=== PATIENT | male | born 1990 | race African-American/Black ===

== ENCOUNTER 2017-08-02 11:55 | Emergency (ER) | payer BC, OTHER ==
[2017-08-02 12:02] VITALS: BP 128/84; PULSE 77; TEMP 99.1; BMI 33.0
[2017-08-02] MEDS ORDERED: IBUPROFEN 600 MG TABLET (FP) PO ONE ×2 (12:13→12:16)
[2017-08-02] MEDS ORDERED: DIPHTH,PERTUSS(ACELL),TET 0.5 ML DISP.SYRIN IM ONE (12:18)
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
--- NOTE | 2017-08-04 07:54 | PDOC ---
Patient Follow-up (Call Back) - Post ED Follow - Up Condition at time of discharge: Stable Disposition at time of original discharge: HOME Reason for Call Back: Radiology (xray read as hill sach deformity. Pt was placed in sling and told to f/u with Dr. live. CAlled and left message for pt to call me at [phone] to discuss update.)
== END 2017-08-02 13:17 | disposition home or self-care (01) ==
LOC: FER 11:55
PROC: 2W38X1Z Immobilization of Right Upper Extremity using Splint (ICD-10-PCS; principal; 2017-08-02)
PROC: 3E0234Z Introduction of Serum, Toxoid and Vaccine into Muscle, Percutaneous Approach (ICD-10-PCS; 2017-08-02)
DX: S43.004A Unspecified dislocation of right shoulder joint, initial encounter (principal); V19.3XXA Pedal cyclist (driver) (passenger) injured in unspecified nontraffic accident, initial encounter; Y93.55 Activity, bike riding; Y92.9 Unspecified place or not applicable; S80.212A Abrasion, left knee, initial encounter
CPT/HCPCS: 73030-TC-RT; 90715; 99282-25